=== PATIENT | female | born 1970 ===

== ENCOUNTER 2016-12-11 17:54 | Emergency (ER) | payer BC ==
[2016-12-11 18:11] VITALS: TEMP 99.7
[2016-12-11 18:13] VITALS: RESP 18
[2016-12-11] MEDS ORDERED: Sodium Chloride 0.9% 1,000 ML IV STA (18:20)
[2016-12-11] MEDS ORDERED: Alum-Mag Hydrox-Simethicone Susp (30 mL) PO STA (18:20)
--- NOTE | 2016-12-11 18:24 | ED PDOC ---
Arrival/HPI - General Chief Complaint: Abdominal Pain Time Seen by Provider: 12/11/16 18:14 Historian: Patient - History of Present Illness Narrative History of Present Illness (Text): 12/11/16 18:20 A 46 year old female whose past medical history includes GERD, presents to the emergency department with 6 hour duration epigastric discomfort and associated vomiting. The patient describes the pain as sharp and has not taken any medication to relieve her symptoms. She notes that she does experience heart burn, but her current symptoms feel different from her usual GERD symptoms. She denies fevers, chills, nausea, diarrhea, headache, dizziness, chest pain, shortness of breath, cough, dysuria, frequency, hematuria, hematemesis, back/ neck pain, or any other complaint. Time/Duration: Other (6 hours) Symptom Onset: Sudden Symptom Course: Unchanged Activities at Onset: Rest, Light Context: Home Past Medical History - Provider Review Nursing Documentation Reviewed: Yes - Infectious Disease Hx of Infectious Diseases: None - Reproductive Menopause: No - Psychiatric Hx Substance Use: No - Anesthesia Hx Anesthesia: No Family/Social History - Physician Review Nursing Documentation Reviewed: Yes Family/Social History: No Known Family HX Smoking Status: Unknown If Ever Smoked Hx Alcohol Use: No Hx Substance Use: No Allergies/Home Meds Allergies/Adverse Reactions: Allergies No Known Allergies Allergy (Verified 12/11/16 18:11) Review of Systems - Physician Review All systems were reviewed & negative as marked: Yes - Review of Systems Constitutional: absent: Fevers, Night Sweats Respiratory: absent: SOB, Cough Cardiovascular: absent: Chest Pain Gastrointestinal: Abdominal Pain (epigastric discomfort), Vomiting. absent: Diarrhea, Nausea, Hematemesis Genitourinary Female: absent: Dysuria, Frequency, Hematuria Musculoskeletal: absent: Back Pain, Neck Pain Neurological: absent: Headache, Dizziness Physical Exam - Physical Exam Narrative Physical Exam (Text): 12/11/16 18:25 Constitutional: No acute distress. Head: Normocephalic. Atraumatic. Eyes: PERRL. No scleral icterus. ENT: Moist mucous membranes. Neck: Supple. Cardiovascular: Regular rate. Chest: No tenderness. Respiratory: Clear to auscultation bilaterally. No accessory muscle use. GI: Soft. Nondistended. No rebound or guarding. Epigastric tenderness. Back: No CVA tenderness. Musculoskeletal: No tenderness or swelling of extremities. Skin: No rash. No Jaundice. Neurologic: Alert, no focal deficit. Vital Signs Reviewed: Yes Vital Signs Temp Pulse Resp BP Pulse Ox 12/11/16 18:13 99.7 F H 82 18 135/86 98 12/11/16 18:08 99.7 F H 82 16 135/86 100 Temperature: Febrile Blood Pressure: Normal Pulse: Regular Respiratory Rate: Normal Appearance: Positive for: Well-Appearing, Non-Toxic, Comfortable Pain Distress: None Mental Status: Positive for: Alert and Oriented X 3 Medical Decision Making ED Course and Treatment: 12/11/16 18:27 Impression: A 46 year old female with 6 hour duration epigastric discomfort, stating the symptoms are different from those of her usual heart burn. Plan: -- EKG -- Labs -- Urinalysis -- Pepcid, Zofran, Maalox, and IV Fluids -- Reassess and disposition Progress Notes: 12/11/16 18:35 EKG: Ordered, reviewed, and independently interpreted the EKG. Rate : 70 BPM Rhythm : NSR Interpretation : No ST/T-wave changes. 12/11/16 20:56 Labs unremarkable. Patient did not feel well at reassessment, nausea gone but pain persists. Administered protonix and patient felt better. Discharged, f/u GI , return to ED for worsening pain, fever, jaundice, vomiting, or any other problem. - Lab Interpretations Lab Results: 12/11/16 18:40 12/11/16 18:40 Lab Results 12/11/16 18:40: Sodium 137, Potassium 4.1, Chloride 99, Carbon Dioxide 26, Anion Gap 16, BUN 17, Creatinine 0.6, Est GFR ( Amer) > 60, Est GFR (Non- Af Amer) > 60, Random Glucose 95, Calcium 9.3, Total Bilirubin 0.7, AST 38 H, ALT 43, Alkaline Phosphatase 71, Total Protein 8.3, Albumin 4.6, Globulin 3.7, Albumin/Globulin Ratio 1.2, Lipase 101 12/11/16 18:40: WBC 10.5, RBC 4.57, Hgb 13.4, Hct 39.5, MCV 86.4, MCH 29.3, MCHC 33.9, RDW 13.1, Plt Count 219, MPV 10.4, Gran % 86.5 H, Lymph % (Auto) 9.4 L, [place] % (Auto) 3.2, Eos % (Auto) 0.8 L, Baso % (Auto) 0.1, Gran # 9.06 H, Lymph # 1.0 L, [place] # 0.3, Eos # 0.1, Baso # 0.01 12/11/16 18:26: Urine Color Yellow, Urine Appearance Clear, Urine pH 8.0, Ur Specific [place] 1.020, Urine Protein 30 H, Urine Glucose (UA) Negative, Urine Ketones Negative, Urine Blood Negative, Urine Nitrate Negative, Urine Bilirubin Negative, Urine Urobilinogen 0.2, Ur Leukocyte Esterase Negative, Urine RBC 0 - 2, Urine WBC 0 - 2, Ur Epithelial Cells 1 - 3, Urine Bacteria Few, Urine HCG, Qual Negative I have reviewed the lab results: Yes - EKG Interpretation Interpreted by ED Physician: Yes Type: 12 lead EKG - Medication Orders Current Medication Orders: Discontinued Medications Al Hydrox/Mg Hydrox/Simethicone (Maalox Plus 30 Ml) 30 ml PO STAT STA Stop: 12/11/16 18:21 Last Admin: 12/11/16 19:36 Dose: 30 ml Famotidine (Pepcid) 20 mg IVP STAT STA Stop: 12/11/16 18:21 Last Admin: 12/11/16 19:36 Dose: 20 mg IVP Administration Document 12/11/16 19:36 EQ (Rec: 12/11/16 19:36 EQ [facility] [id number]) Charges for Administration # of IVP Administrations 1 Sodium Chloride (Sodium Chloride 0.9%) 1,000 mls @ 999 mls/hr IV .Q1H1M STA Stop: 12/11/16 19:20 Last Admin: 12/11/16 19:36 Dose: 999 mls/hr eMAR Start Stop Document 12/11/16 19:36 EQ (Rec: 12/11/16 19:36 EQ [facility] [id number]) Intravenous Solution Start Date 12/11/16 Start Time 19:36 Ondansetron HCl (Zofran Inj) 8 mg IVP STAT STA Stop: 12/11/16 18:21 Last Admin: 12/11/16 19:36 Dose: 8 mg IVP Administration Document 12/11/16 19:36 EQ (Rec: 12/11/16 19:36 EQ [facility] [id number]) Charges for Administration # of IVP Administrations 1 Pantoprazole Sodium (Protonix Inj) 40 mg IVP STAT STA Stop: 12/11/16 20:06 Last Admin: 12/11/16 20:20 Dose: 40 mg IVP Administration Document 12/11/16 20:20 EQ (Rec: 12/11/16 20:37 EQ [facility] [id number]) Charges for Administration # of IVP Administrations 1 - Scribe Statement The provider has reviewed the documentation as recorded by the Franc Fisher Provider Scribe Attestation: All medical record entries made by the Scribe were at my direction and personally dictated by me. I have reviewed the chart and agree that the record accurately reflects my personal performance of the history, physical exam, medical decision making, and the department course for this patient. I have also personally directed, reviewed, and agree with the discharge instructions and disposition. Disposition/Present on Arrival - Present on Arrival Any Indicators Present on Arrival: No History of DVT/PE: No History of Uncontrolled Diabetes: No Urinary Catheter: No History of Decub. Ulcer: No History Surgical Site Infection Following: None - Disposition Have Diagnosis and Disposition been Completed?: Yes Diagnosis: Epigastric pain Disposition: HOME/ ROUTINE Disposition Time: 20:56 Patient Plan: Discharge Condition: STABLE Discharge Instructions (ExitCare): Gastritis (ED) Prescriptions: Famotidine/Ca Carb/Mag Hydrox [Pepcid Complete Tablet Chew] 1 each PO BID #28 tab.chew Pantoprazole Sodium [Protonix] 20 mg PO ONCE #14 ect Referrals: PCP,NO [Primary Care Provider] - Follow up with primary Dulce KIMBLE,MD Cornelia [Medical Doctor] - Follow up with primary Forms: [employer] (Yakut)
[2016-12-11 19:01] LABS: URINE BILIRUBIN NEGATIVE (NEGATIVE); URINE BLOOD NEGATIVE (NEGATIVE); URINE GLUCOSE (UA) NEGATIVE (NEGATIVE); URINE KETONE NEGATIVE (NEGATIVE); URINE LEUKOCYTE ESTERASE NEGATIVE Leu/uL (NEGATIVE); URINE PROTEIN 30 mg/dL (<30 mg/dL); URINE UROBILINOGEN 0.2 E.U./dL (<1 E.U./dL)
[2016-12-11 19:09] LABS: ALB/GLOB RATIO 1.2 (1.1-1.8); ALKALINE PHOSPHATASE 71 U/L (38-126); ALT/SGPT 43 U/L (7-56); AST/SGOT 38 U/L (14-36); BILIRUBIN,TOTAL 0.7 mg/dL (0.2-1.3); BLOOD UREA NITROGEN 17 mg/dL (7-21); CALCIUM 9.3 mg/dL (8.4-10.5); CARBON DIOXIDE 26 mmol/L (21-33); CHLORIDE 99 mmol/L (98-107); GFR AFRICAN-AMERICAN > 60; GLUCOSE,RANDOM 95 mg/dL (70-110); LIPASE 101 U/L (23-300); POTASSIUM 4.1 mmol/L (3.6-5.0); SODIUM 137 mmol/L (132-148); TOTAL PROTEIN 8.3 g/dL (5.8-8.3)
[2016-12-11 19:10] LABS: URINE APPEARANCE CLEAR (CLEAR); URINE COLOR YELLOW (YELLOW)
[2016-12-11 19:12] LABS: URINE BACTERIA FEW (NEG); URINE RBC 0 - 2 /hpf (0-2); URINE WBC 0 - 2 /hpf (0-6)
[2016-12-11 19:19] LABS: BASO # 0.01 K/mm3 (0.0-2.0); BASO % 0.1 % (0.0-3.0); EOS # 0.1 (0.0-0.7); EOS % 0.8 % (1.5-5.0); GRAN # 9.06 (1.4-6.5); GRAN % 86.5 % (50.0-68.0); HEMATOCRIT 39.5 % (36.0-48.0); LYMPH % 9.4 % (22.0-35.0); MEAN CELL VOLUME 86.4 fl (80.0-105.0); MEAN CORPUSCULAR HEMOGLOBIN 29.3 pg (25.0-35.0); MEAN CORPUSCULAR HGB CONC 33.9 g/dl (31.0-37.0); MEAN PLATELET VOLUME 10.4 fl (7.0-11.0); MONO # 0.3 (0.1-0.6); MONO % 3.2 % (1.0-6.0); RED CELL DISTRIBUTION WIDTH 13.1 % (11.5-14.5); WHITE BLOOD COUNT 10.5 10^3/ul (4.5-11.0)
[2016-12-11 21:20] VITALS: BP 128/77; PULSE 71; O2SAT 100
--- NOTE | 2016-12-12 23:22 | CARD ---
APPROVED REPORT EKG Measurement Heart [id number] <Conclusion> Sinus rhythm with marked sinus arrhythmia Otherwise normal ECG
== END 2016-12-11 21:19 | disposition home or self-care (01) ==
LOC: ED 17:54
DX: R10.13 Epigastric pain (principal)
CPT/HCPCS: 80053; 81001; 83690; 84703; 85025; 93005; 96374; 96375; 99283; C9113; J2405; J7040